=== PATIENT | female | born 1955 | race Caucasian/White ===

== ENCOUNTER 2023-06-17 11:10 | Emergency (ER) | payer MEDICARE ==
[~2023-06-17] VITALS: Ht 154.9 cm; Wt 63.5 kg
[2023-06-17 11:44] VITALS: BP 145/74
[2023-06-17] MEDS ORDERED: NAPROXEN500 MG PO (12:16)
[2023-06-17] MEDS ORDERED: TRAMADOL HYDROC50 M1 PO (12:16)
== END 2023-06-17 12:35 | disposition home or self-care (01) ==
LOC: ED 11:10
PROC: 2W3CX1Z Immobilization of Right Lower Arm using Splint (ICD-10-PCS; principal; 2023-06-17)
DX: S52.501A Unspecified fracture of the lower end of right radius, initial encounter for closed fracture (principal); I10 Essential (primary) hypertension; M06.9 Rheumatoid arthritis, unspecified; W18.30XA Fall on same level, unspecified, initial encounter